=== PATIENT | female | born 1960 | race Hispanic/Latino ===

== ENCOUNTER 2016-08-15 22:50 | Emergency (ER) | payer MEDICARE ==
[2016-08-15] MEDS ORDERED: NACL 0.9% 1000 ML 1,000 ML IV ONE (23:24)
[2016-08-15] MEDS ORDERED: ZOFRAN ONE (23:59)
[2016-08-16] MEDS ORDERED: ZOFRAN IV ONE (00:04)
[2016-08-16 00:16] LABS: Basophils % (Auto) 0.6 % (0.0-1.8); Hematocrit 33.1 % (30.3-42.9); Hemoglobin 10.9 gm/dl (10.1-14.3); Mean Corpuscular HGB Conc 33 % (30-34); Mean Corpuscular Volume 77 fl (79-97); Platelet Count 223 K/mm3 (140-440); Red Blood Count 4.32 M/mm3 (3.65-5.03); Red Cell Distribution Width 17.9 % (13.2-15.2); White Blood Count 3.7 K/mm3 (4.5-11.0)
[2016-08-16 00:18] LABS: Mean Corpuscular Hemoglobin 25 pg (28-32)
[2016-08-16 00:39] LABS: Alanine Aminotransferase 11 units/L (7-56); Albumin/Globulin Ratio 1.6 %; Alkaline Phosphatase 87 units/L (35-129); Anion Gap 17 mmol/L; BUN/Creatinine Ratio 13.33; Blood Urea Nitrogen 8 mg/dL (7-17); Calcium 9.1 mg/dL (8.4-10.2); Carbon Dioxide 24 mmol/L (22-30); Chloride 102.7 mmol/L (98-107); Glucose 97 mg/dL (65-100); Potassium 3.6 mmol/L (3.6-5.0); Sodium 140 mmol/L (137-145); Total Protein 6.5 g/dL (6.3-8.2)
[2016-08-16] MEDS ORDERED: KEPPRA PO ONE (00:40)
[2016-08-16 01:09] LABS: Urine Drugs of Abuse Note Disclamer
[2016-08-16 01:16] LABS: Bilirubin,Urine NEG (Negative); Blood,Urine NEG (Negative); Ketones,Urine NEG (Negative); Leukocyte Esterase,Urine MOD (Negative); Nitrite,Urine NEG (Negative); Protein,Urine <15 mg/dL mg/dL (Negative); Urobilinogen,Urine < 2.0 mg/dL (<2.0)
--- NOTE | 2016-08-16 01:45 | Emergency Department Report ---
ED Seizure HPI - General Chief Complaint: Altered Mental Status Stated Complaint: AMS Time Seen by Provider: 08/15/16 23:22 Source: EMS Mode of arrival: Stretcher Limitations: No Limitations - History of Present Illness Initial Comments: 56-year-old female with past medical history of psychosis, seizure percent to the emergency room after loc. Per [facility] staff at the bedside, the patient was with a group of other patients at the [facility], when she appears to have LOC and generalized jerking. There was a moment where she is confused afterwards. Patient states she had seizure history in the past and was on Depakote however was taken off Depakote secondary to being asymptomatic. Patient cannot recall her last seizure. Patient states she was lost to follow up with neurology. Currently patient has no complaints. Patient is now AAOX4. Staff denied patient hit her head. MD Complaint: possible seizure -: Sudden Description of Episode: loss of consciousness, tonic-clonic movement Witnessed:: Yes Trauma: No Seizure History: known seizure disorder Possible Precipitating Event: none Associated Symptoms: denies other symptoms. denies: chest pain, confusion, cough, loss of appetite, malaise, rash, weakness, tongue injury, shoulder dislocation Treatments Prior to Arrival: none - Related Data Home Medications Medication Instructions Recorded Confirmed Last Taken Benztropine [Cogentin] 2 mg PO QAM 08/10/16 08/10/16 Unknown Citalopram Hydrobromide [celeXA] 40 mg PO QAM 08/10/16 08/10/16 Unknown Donepezil [Aricept] 5 mg PO QAM 08/10/16 08/10/16 Unknown OLANzapine [ZyPREXA] 5 mg PO QHS 08/10/16 08/10/16 Unknown Pantoprazole [Protonix TAB] 40 mg PO QAM 08/10/16 08/10/16 Unknown busPIRone [Buspar] 15 mg PO BID 08/10/16 08/10/16 Unknown risperiDONE [RisperDAL] 2 mg PO BID 08/10/16 08/10/16 Unknown Previous Rx's Medication Instructions Recorded Last Taken Type Levothyroxine [Synthroid] 25 mcg PO QAM@0600 #30 tablet 08/13/16 Unknown Rx NIFEdipine XL [Procardia Xl] 30 mg PO QDAY #30 tablet 08/13/16 Unknown Rx levETIRAcetam [Keppra TAB] 500 mg PO BID #60 tablet 08/13/16 Unknown Rx Ibuprofen [Motrin 800 MG tab] 800 mg PO Q8HR PRN #60 tablet 08/16/16 Unknown Rx levETIRAcetam [Keppra TAB] 500 mg PO BID #60 tablet 08/16/16 Unknown Rx Allergies Allergy/AdvReac Type Severity Reaction Status Date / Time lithium Allergy Intermediate Anaphylaxis Unverified 08/10/16 16:12 ED Review of Systems ROS: Stated complaint: AMS Other details as noted in HPI Constitutional: denies: chills, fever Eyes: denies: eye pain, eye discharge, vision change ENT: denies: ear pain, throat pain Respiratory: denies: cough, shortness of breath, wheezing Cardiovascular: denies: chest pain, palpitations Endocrine: no symptoms reported Gastrointestinal: denies: abdominal pain, nausea, diarrhea Genitourinary: denies: urgency, dysuria, discharge Musculoskeletal: denies: back pain, joint swelling, arthralgia Skin: denies: rash, lesions Neurological: confusion. denies: headache, weakness, paresthesias Psychiatric: denies: anxiety, depression Hematological/Lymphatic: denies: easy bleeding, easy bruising ED Past Medical Hx - Past Medical History Previous Medical History?: Yes Hx Hypertension: Yes Hx CVA: No Hx Heart Attack/AMI: No Hx Congestive Heart Failure: No Hx Diabetes: No Hx Deep Vein Thrombosis: No Hx Pulmonary Embolism: No Hx GERD: Yes Hx Liver Disease: No Hx Renal Disease: No Hx Sickle Cell Disease: No Hx Arthritis: No Hx Headaches / Migraines: No Hx Seizures: Yes Hx Kidney Stones: No Hx Psychiatric Treatment: Yes (pt at [facility]) Hx Asthma: No Hx COPD: No Hx Tuberculosis: No Hx Dementia: No Hx HIV: No Additional medical history: Pt has Hypothyroidism, Anxiety, - Surgical History Past Surgical History?: No Hx Coronary Stent: No Hx Open Heart Surgery: No Hx Pacemaker: No Hx Internal Defibrillator: No Hx Cholecystectomy: No Hx Appendectomy: No Hx Breast Surgery: No - Social History Smoking Status: Never Smoker Substance Use Type: None - Medications Home Medications: Home Medications Medication Instructions Recorded Confirmed Last Taken Type Benztropine [Cogentin] 2 mg PO QAM 08/10/16 08/10/16 Unknown History Citalopram Hydrobromide [celeXA] 40 mg PO QAM 08/10/16 08/10/16 Unknown History Donepezil [Aricept] 5 mg PO QAM 08/10/16 08/10/16 Unknown History OLANzapine [ZyPREXA] 5 mg PO QHS 08/10/16 08/10/16 Unknown History Pantoprazole [Protonix TAB] 40 mg PO QAM 08/10/16 08/10/16 Unknown History busPIRone [Buspar] 15 mg PO BID 08/10/16 08/10/16 Unknown History risperiDONE [RisperDAL] 2 mg PO BID 08/10/16 08/10/16 Unknown History Levothyroxine [Synthroid] 25 mcg PO QAM@0600 #30 tablet 08/13/16 Unknown Rx NIFEdipine XL [Procardia Xl] 30 mg PO QDAY #30 tablet 08/13/16 Unknown Rx levETIRAcetam [Keppra TAB] 500 mg PO BID #60 tablet 08/13/16 Unknown Rx Ibuprofen [Motrin 800 MG tab] 800 mg PO Q8HR PRN #60 tablet 08/16/16 Unknown Rx levETIRAcetam [Keppra TAB] 500 mg PO BID #60 tablet 08/16/16 Unknown Rx ED Physical Exam - General Limitations: No Limitations General appearance: alert, in no apparent distress - Head Head exam: Present: atraumatic, normocephalic - Eye Eye exam: Present: normal appearance - ENT ENT exam: Present: mucous membranes moist - Neck Neck exam: Present: normal inspection - Respiratory Respiratory exam: Present: normal lung sounds bilaterally. Absent: respiratory distress - Cardiovascular Cardiovascular Exam: Present: regular rate, normal rhythm. Absent: systolic murmur, diastolic murmur, rubs, gallop - GI/Abdominal GI/Abdominal exam: Present: soft, normal bowel sounds - Extremities Exam Extremities exam: Present: normal inspection - Back Exam Back exam: Present: normal inspection - Neurological Exam Neurological exam: Present: alert, oriented X3, CN II-XII intact, normal gait, reflexes normal, other (normal sensation, 5/5 extremity strength ). Absent: motor sensory deficit - Psychiatric Psychiatric exam: Present: normal affect, normal mood - Skin Skin exam: Present: warm, dry, intact, normal color. Absent: rash ED Course Vital Signs 08/15/16 23:08 Temperature 98.8 F Pulse Rate 51 L Respiratory 16 Rate Blood Pressure 130/78 O2 Sat by Pulse 96 Oximetry ED Medical Decision Making - Lab Data Result diagrams: 08/15/16 23:44 08/15/16 23:44 - EKG Data -: EKG Interpreted by Me EKG shows normal: sinus rhythm (54), axis (normal ), intervals (QTC 464, BBR213) Rate: normal - EKG Data When compared to previous EKG there are: no significant change Interpretation: no acute changes - Medical Decision Making 56-year-old female presenting to the emergency department status post seizure versus syncope. Given the description from witnesses likely patient had a seizure. Patient states she had vision the past however has not been compliant with Depakote secondary to being asymptomatic for "a long period of time". I will start patient on Keppra 500 mg twice a day with neurology follow-up after CT. She is currently AAO 4, stable gait, and requesting to discharge BACK to [facility] Dr Freed will follow up with CT head and [place] [address] head negative - Differential Diagnosis SEIZURE, SYNCOPE Critical Care Time: No Critical care attestation.: If time is entered above; I have spent that time in minutes in the direct care of this critically ill patient, excluding procedure time. ED Disposition Clinical Impression: Seizure disorder, Seizure Disposition: [id number]/TX-65 PSY HOSP/PSY UNIT Is pt being admited?: No Does the pt Need Aspirin: No Condition: Stable Instructions: Women and Epilepsy (ED) Prescriptions: Ibuprofen [Motrin 800 MG tab] 800 mg PO Q8HR PRN #60 tablet PRN Reason: Pain , Severe (7-10) levETIRAcetam [Keppra TAB] 500 mg PO BID #60 tablet Referrals: PRIMARY CAREMD [Primary Care Provider] - 2-3 Days BASIL GAN MD, PHD [Staff Physician] - 2-3 Days LOUISA MOYA MD [Referring] - 24 Hours Forms: Work/School Release Form(ED)
--- NOTE | 2016-08-16 03:28 | Cat Scan Report ---
FINAL REPORT EXAM: CT HEAD/BRAIN WO CON HISTORY: seizure COMPARISON: CT of the head from August 10, 2016. TECHNIQUE: Axial images obtained skull base through vertex. FINDINGS: No acute intracranial hemorrhage, midline shift or pathologic extra axial fluid collection. Ventricles and cisterns are normal in size and configuration for the patient's age. Aldrich-white differentiation preserved. Calvarium grossly intact. Mild mucosal thickening of the ethmoid air cells. Mastoid air cells are clear. Orbits are grossly unremarkable. IMPRESSION: No grossly acute intracranial abnormality.
[2016-08-16 06:34] VITALS: BP 128/74
[2016-08-16 13:05] LABS: Bacteria,Urine 1+ /HPF (Negative)
== END 2016-08-16 05:40 ==
LOC: ED 22:50
DX: G40.909 Epilepsy, unspecified, not intractable, without status epilepticus (principal); I10 Essential (primary) hypertension; K21.9 Gastro-esophageal reflux disease without esophagitis
CPT/HCPCS: 36415; 70450; 80053; 80307; 81001; 84484; 85025; 93005; 93010; 96361; 96374; 99284; G0480; J2405; J7030; 80320

== ENCOUNTER 2016-08-21 12:36 | Emergency (ER) | payer MEDICARE ==
[2016-08-21 14:29] VITALS: BP 111/66
--- NOTE | 2016-08-21 14:33 | Cat Scan Report ---
CT HEAD WITHOUT CONTRAST: HISTORY: Head trauma. Compared to 08/16/16. A small soft tissue scalp hematoma is noted in the vertex of the skull. No calvarial fracture. Serial contiguous axial images were obtained through the cranium. Intravenous contrast material was not administered. The ventricles are normal in size and appearance. There is no mass effect or midline shift. No areas of abnormally increased or decreased attenuation are seen. No mass lesion is seen. The mastoid air cells and visualized portions of the sinuses are normal. IMPRESSION: Soft tissue swelling. No acute intracranial injury.
--- NOTE | 2016-08-21 14:34 | Cat Scan Report ---
CT SCAN OF THE CERVICAL SPINE: HISTORY: Neck pain, injury. TECHNIQUE: Contiguous 1.25 mm axial images of the cervical spine were obtained. Sagittal and coronal reformatted images. FINDINGS: There is normal alignment of the cervical spine. The body, pedicles and posterior ligaments appear normal. No evidence of fracture or subluxation is seen. The spinal canal appears normal. The prevertebral soft tissues appear normal. IMPRESSION: Unremarkable CT of the cervical spine. No acute process is noted.
[2016-08-21 14:57] LABS: Alanine Aminotransferase 12 units/L (7-56); Albumin/Globulin Ratio 1.4 %; Alkaline Phosphatase 99 units/L (35-129); Anion Gap 19 mmol/L; BUN/Creatinine Ratio 14.44; Blood Urea Nitrogen 13 mg/dL (7-17); Calcium 9.3 mg/dL (8.4-10.2); Carbon Dioxide 23 mmol/L (22-30); Chloride 101.8 mmol/L (98-107); Glucose 79 mg/dL (65-100); Potassium 4.1 mmol/L (3.6-5.0); Sodium 140 mmol/L (137-145); Total Protein 6.8 g/dL (6.3-8.2)
[2016-08-21 14:58] LABS: Hematocrit 38.3 % (30.3-42.9); Hemoglobin 11.9 gm/dl (10.1-14.3); Mean Corpuscular HGB Conc 31 % (30-34); Mean Corpuscular Volume 80 fl (79-97); Platelet Count 225 K/mm3 (140-440); Red Cell Distribution Width 18.3 % (13.2-15.2); White Blood Count 3.7 K/mm3 (4.5-11.0)
[2016-08-21 14:59] LABS: Mean Corpuscular Hemoglobin 25 pg (28-32)
--- NOTE | 2016-08-21 15:17 | Emergency Department Report ---
ED Fall HPI - General Chief Complaint: Fall Stated Complaint: FALL Time Seen by Provider: 08/21/16 13:20 Source: EMS Mode of arrival: Stretcher - History of Present Illness Initial Comments: Patient is a 56-year-old female with a known history of psychiatric illness who fell out of a chair and struck the back of her head earlier today. According to staff that the psychiatric facility the patient was acting different and tipped her chair over. No fevers chills nausea vomiting. Patient complains of pain to the back of head. She fell from a seated position and struck her head on a hard surface. There is no laceration to the back of her head but there is a hematoma. MD Complaint: fall -: Sudden Fall From: out of bed When Fall Occurred: 1 hour [employer] Fall Witnessed: yes, by living facility s Place Fall Occurred: other (psychiatric facility) Loss of Consciousness: none Prolonged Down Time?: no Symptoms Prior to Fall: other (confusion) Location: head - Related Data Home Medications Medication Instructions Recorded Confirmed Last Taken Benztropine [Cogentin] 2 mg PO QAM 08/10/16 08/10/16 Unknown Citalopram Hydrobromide [celeXA] 40 mg PO QAM 08/10/16 08/10/16 Unknown Donepezil [Aricept] 5 mg PO QAM 08/10/16 08/10/16 Unknown OLANzapine [ZyPREXA] 5 mg PO QHS 08/10/16 08/10/16 Unknown Pantoprazole [Protonix TAB] 40 mg PO QAM 08/10/16 08/10/16 Unknown busPIRone [Buspar] 15 mg PO BID 08/10/16 08/10/16 Unknown risperiDONE [RisperDAL] 2 mg PO BID 08/10/16 08/10/16 Unknown Previous Rx's Medication Instructions Recorded Last Taken Type Levothyroxine [Synthroid] 25 mcg PO QAM@0600 #30 tablet 08/13/16 Unknown Rx NIFEdipine XL [Procardia Xl] 30 mg PO QDAY #30 tablet 08/13/16 Unknown Rx levETIRAcetam [Keppra TAB] 500 mg PO BID #60 tablet 08/13/16 Unknown Rx Ibuprofen [Motrin 800 MG tab] 800 mg PO Q8HR PRN #60 tablet 08/16/16 Unknown Rx levETIRAcetam [Keppra TAB] 500 mg PO BID #60 tablet 08/16/16 Unknown Rx Allergies Allergy/AdvReac Type Severity Reaction Status Date / Time lithium Allergy Intermediate Anaphylaxis Unverified 08/10/16 16:12 ED Review of Systems ROS: Stated complaint: FALL Other details as noted in HPI Comment: Unobtainable due to pts medical conditions (patient is not willing to answer questions she did deny pain) ED Past Medical Hx - Past Medical History Hx Hypertension: Yes Hx CVA: No Hx Heart Attack/AMI: No Hx Congestive Heart Failure: No Hx Diabetes: No Hx Deep Vein Thrombosis: No Hx Pulmonary Embolism: No Hx GERD: Yes Hx Liver Disease: No Hx Renal Disease: No Hx Sickle Cell Disease: No Hx Arthritis: No Hx Headaches / Migraines: No Hx Seizures: Yes Hx Kidney Stones: No Hx Psychiatric Treatment: Yes (pt at [facility]) Hx Asthma: No Hx COPD: No Hx Tuberculosis: No Hx Dementia: No Hx HIV: No Additional medical history: Pt has Hypothyroidism, Anxiety, - Surgical History Hx Coronary Stent: No Hx Open Heart Surgery: No Hx Pacemaker: No Hx Internal Defibrillator: No Hx Cholecystectomy: No Hx Appendectomy: No Hx Breast Surgery: No - Family History Family history: no significant - Social History Smoking Status: Current Every Day Smoker Substance Use Type: None - Medications Home Medications: Home Medications Medication Instructions Recorded Confirmed Last Taken Type Benztropine [Cogentin] 2 mg PO QAM 08/10/16 08/10/16 Unknown History Citalopram Hydrobromide [celeXA] 40 mg PO QAM 08/10/16 08/10/16 Unknown History Donepezil [Aricept] 5 mg PO QAM 08/10/16 08/10/16 Unknown History OLANzapine [ZyPREXA] 5 mg PO QHS 08/10/16 08/10/16 Unknown History Pantoprazole [Protonix TAB] 40 mg PO QAM 08/10/16 08/10/16 Unknown History busPIRone [Buspar] 15 mg PO BID 08/10/16 08/10/16 Unknown History risperiDONE [RisperDAL] 2 mg PO BID 08/10/16 08/10/16 Unknown History Levothyroxine [Synthroid] 25 mcg PO QAM@0600 #30 tablet 08/13/16 Unknown Rx NIFEdipine XL [Procardia Xl] 30 mg PO QDAY #30 tablet 08/13/16 Unknown Rx levETIRAcetam [Keppra TAB] 500 mg PO BID #60 tablet 08/13/16 Unknown Rx Ibuprofen [Motrin 800 MG tab] 800 mg PO Q8HR PRN #60 tablet 08/16/16 Unknown Rx levETIRAcetam [Keppra TAB] 500 mg PO BID #60 tablet 08/16/16 Unknown Rx ED Physical Exam - General Limitations: No Limitations General appearance: alert, in no apparent distress - Head Head exam: Present: normocephalic, other (there is an occipital hematoma) - Eye Eye exam: Present: PERRL, EOMI - ENT ENT exam: Present: mucous membranes moist - Neck Neck exam: Present: normal inspection - Respiratory Respiratory exam: Present: normal lung sounds bilaterally. Absent: respiratory distress - Cardiovascular Cardiovascular Exam: Present: regular rate, normal rhythm. Absent: systolic murmur, diastolic murmur, rubs, gallop - GI/Abdominal GI/Abdominal exam: Present: soft. Absent: tenderness, guarding - Extremities Exam Extremities exam: Present: normal inspection - Back Exam Back exam: Present: normal inspection, full ROM, tenderness, other (no C-spine tenderness) - Neurological Exam Neurological exam: Present: alert, oriented X3 - Psychiatric Psychiatric exam: Present: normal affect, normal mood - Skin Skin exam: Present: warm, dry, intact, normal color. Absent: rash ED Course Vital Signs 08/21/16 08/21/16 08/21/16 12:48 13:04 14:29 Temperature 97.8 F Pulse Rate 56 L 63 56 L Respiratory 17 16 Rate Blood Pressure 117/67 Blood Pressure 111/66 [Left] O2 Sat by Pulse 100 99 Oximetry ED Medical Decision Making - Lab Data Result diagrams: 08/21/16 14:23 08/21/16 14:23 Laboratory Results - last 24 hr 08/21/16 08/21/16 14:23 14:23 WBC 3.7 L RBC 4.80 Hgb 11.9 Hct 38.3 MCV 80 MCH 25 L MCHC 31 RDW 18.3 H Plt Count 225 Lymph % (Auto) [employer] Pender % (Auto) [employer] Eos % (Auto) [employer] Baso % (Auto) [employer] Lymph # [employer] Pender # [employer] Eos # [employer] Baso # [employer] Seg Neutrophils % [employer] Seg Neutrophils # [employer] Sodium 140 Potassium 4.1 Chloride 101.8 Carbon Dioxide 23 Anion Gap 19 BUN 13 Creatinine 0.9 Estimated GFR > 60 BUN/Creatinine Ratio 14.44 Glucose 79 Calcium 9.3 Total Bilirubin 0.30 AST 15 ALT 12 Alkaline Phosphatase 99 Total Protein 6.8 Albumin 4.0 Albumin/Globulin Ratio 1.4 - Medical Decision Making Patient is a 56-year-old female with a known psychiatric history of psychiatric illness. Here with fall from chair striking her head on the floor. She has a sizable hematoma but no laceration to the back of her head. She complains of a headache. Head and neck CTs are negative basic chemistries are negative. At this point I feel she is stable to return back to [facility]. Critical care attestation.: If time is entered above; I have spent that time in minutes in the direct care of this critically ill patient, excluding procedure time. ED Disposition Clinical Impression: Brain concussion, Altered mental status, unspecified Disposition: DC/TX-70 ANOTHER TYPE HLTHCARE Is pt being admited?: No Condition: Stable Instructions: Concussion (ED) Additional Instructions: Patient with likely mild concussion. Workup is otherwise negative. Referrals: PRIMARY CARE, [Primary Care Provider] - 3-5 Days
== END 2016-08-21 17:37 | disposition other institution (70) ==
LOC: ED 12:36
DX: S06.0X9A Concussion with loss of consciousness of unspecified duration, initial encounter (principal); R41.82 Altered mental status, unspecified; I10 Essential (primary) hypertension; K21.9 Gastro-esophageal reflux disease without esophagitis; F17.210 Nicotine dependence, cigarettes, uncomplicated; Z88.8 Allergy status to other drugs, medicaments and biological substances; W07.XXXA Fall from chair, initial encounter; Y93.89 Activity, other specified; Y92.89 Other specified places as the place of occurrence of the external cause; Y99.8 Other external cause status
CPT/HCPCS: 36415; 70450; 72125; 80053; 85025; 99285